=== PATIENT | male | born 2000 | race Caucasian/White ===

== ENCOUNTER 2025-04-28 12:47 | Emergency (ER) | payer OTHER, SELFPAY ==
--- NOTE | ~2025-04-28 | XR_ITS ---
EXAMINATION: XR foot RT min 3V, 04/28/2025 13:28 CDT HISTORY: toe injury COMPARISON: No comparisons available. Findings: No acute fracture or malalignment. No significant degenerative changes. Soft tissues unremarkable. Impression: No acute fracture or malalignment. Reviewed, dictated and finalized at location P. Impression: No acute fracture or malalignment.
[2025-04-28 13:07] VITALS: BP 126/76; PULSE 115; RESP 18; TEMP 36.4; O2SAT 100
--- NOTE | 2025-04-28 14:57 | ED.LOWEXIN ---
HPI - Extremity Injury (Lower) General Chief Complaint: Extremity Injury, Lower Stated Complaint: rt great toe injury /work-related Time Seen by Provider: 04/28/25 13:45 Source: patient and RN notes reviewed Mode of arrival: ambulatory Limitations: no limitations History of Present Illness HPI Narrative: 25-year-old male presents to the [facility] complaining of right great toe injury. Patient reports about 3 hours ago and large palate batteries fell off a palate lift and fell and landed on his right great toe. Patient denies any other injuries. Patient denies draining to help with pain. Patient denies any significant past medical history. Related Data Home Medications ?Medication ?Instructions ?Recorded ?Confirmed ?Last Taken ?Type atomoxetine 25 mg capsule mg PO 04/28/25 Unknown History bupropion HCl 150 mg 24 hr tablet, mg PO 04/28/25 Unknown History extended release cariprazine 3 mg capsule (Vraylar) mg 04/28/25 Unknown History esketamine 56 mg (28 mg x 2) nasal mg intranasal 04/28/25 Unknown History spray (Spravato) estradiol valerate 20 mg/mL mg IM 04/28/25 Unknown History intramuscular oil finasteride 1 mg tablet mg 04/28/25 Unknown History propranolol 20 mg tablet mg 04/28/25 Unknown History Allergies Allergy/AdvReac Type Severity Reaction Status Date / Time No Known Drug Allergies Allergy none Verified 04/28/25 13:20 Review of Systems Review of Systems: CONSTITUTIONAL: Denies fever, chills, or sweats. EYES: Denies visual changes, redness, or discharge. ENT: Denies rhinorrhea, congestion, sore throat, or otalgia. CARDIOVASCULAR: Denies chest pain, palpitations, or edema. RESPIRATORY: Denies cough or dyspnea. GASTROINTESTINAL: Denies abdominal pain, nausea, vomiting, or diarrhea. GENITOURINARY: Denies dysuria or hematuria. SKIN: Denies rash, wound, or itching. MUSCULOSKELETAL: Denies back pain, joint pain, or myalgia. Positive for injury and swelling NEUROLOGIC: Denies headache, numbness, or weakness. PSYCHIATRIC: Denies anxiety or depression. All other systems reviewed are negative, except as documented in HPI. PMFSH Comments At the time of my signature, I reviewed and agree with the nursing past medical, surgical, social, and family history. There is no relevant family history pertinent to the patient complaint. Exam Narrative: GENERAL: This is a well-nourished, well-developed adult, in no apparent distress. They are non ill-appearing, nontoxic appearing. HEAD: normocephalic, atraumatic. EYES: Sclera clear/white. Vision is grossly intact. Conjunctiva normal. Extraocular movement intact. EARS: External ears normal Hearing grossly intact. NOSE: External nose normal THROAT: Mucous membranes moist NECK: Neck supple CARDIOVASCULAR: Regular rate and rhythm RESPIRATORY: Respiratory rate normal, respiratory effort nonlabored, no respiratory distress NEURO: awake, alert, and oriented to person, place and time. There were no obvious focal neurologic abnormalities. EXTREMITIES: Right foot: No obvious deformity, injury,, bruising. Mild erythema and swelling to dorsal surface of right great toe near the MCP joint. Normal range of motion. Capillary refill less than 3 seconds. Right pedal Pulse 2 +palpable. Normal sensation. Neurovascular status intact distal injury. Negative Canut's test. Patient is able to wiggle his toes. BACK: Nontender without deformity. Course Course Emergency Course: Portions of this record may have been created with voice recognition software Level of Care: Express Care Visit Vital Signs Vital signs: Vital Signs Temperature 97.6 F 04/28/25 13:07 Pulse Rate 115 H 04/28/25 13:07 Respiratory Rate 18 04/28/25 13:07 Blood Pressure 126/76 04/28/25 13:07 Pulse Oximetry 100 04/28/25 13:07 Oxygen Delivery Room Air 04/28/25 13:07 Temperature 97.6 F 04/28/25 13:07 Pulse Rate 115 H 04/28/25 13:07 Respiratory Rate 18 04/28/25 13:07 Blood Pressure 126/76 04/28/25 13:07 Pulse Oximetry 100 04/28/25 13:07 Oxygen Delivery Room Air 04/28/25 13:07 Reviewed MDM - Extremity Injury (Lower) MDM Narrative Medical decision making narrative: X-ray right great toe negative for any fractures or acute findings. Likely toe contusion. Discussed physical exam findings. Advised supportive measures and signs/symptoms to go to the ER. Pt is appropriate for outpt treatment and f/u. Differential Diagnosis Differential diagnosis: Likely other (Toe fracture, toe sprain, foot fracture, foot sprain, crush injury) Imaging Data Radiologist's impression: ITS Impressions Foot X-Ray 04/28/25 13:46 Impression: No acute fracture or malalignment. Critical Care Time Critical Care Time Critical Care Time: No Discharge Plan Discharge Clinical Impression: Crush injury Contusion of toe of left foot Qualifiers: Encounter type: initial encounter Toe: great toe Damage to nail status: without damage Qualified Code(s): S90.112A - Contusion of left great toe without damage to nail, initial encounter Patient Disposition: Home Condition: Stable Instructions: Antibiotic Form, Foot Contusion (ED) Additional Instructions: X-ray of your left great toe negative for any fracture or acute findings Rest and elevate the leg; bear weight as tolerated Apply ice 15-20 minute intervals several times a day You may take ibuprofen 600 mg to 800 mg every 6-8 hours. Do not exceed more than 800 mg of ibuprofen per dose. Do not exceed more than 3200 mg ibuprofen in a day. You may take up to 1000 mg Tylenol every 6-8 hours. Do not exceed 1000 mg per dose, do exceed more than 4000 mg of Tylenol in a day. Follow up with your primary care provider as needed in 1-2 weeks especially if pain persist after week. Patient Language: [place] Prescriptions: No Action estradiol valerate 20 mg/mL oil IM propranolol 20 mg tablet finasteride 1 mg tablet atomoxetine 25 mg capsule PO bupropion HCl 150 mg tablet extended release 24 hr PO Vraylar 3 mg capsule Spravato 56 mg (28 mg x 2) spray,non-aerosol INTRANASAL Follow-up/Referrals: Anibal,Ciaran Guerin MD [Primary Care Provider, Unknown] Stand Alone Forms: Work/School Release IP Time of Disposition: 14:06
== END 2025-04-28 14:13 | disposition home or self-care (01) ==
PROVIDERS: PCP Family Medicine
DX: S97.112A Crushing injury of left great toe, initial encounter (principal); S90.112A Contusion of left great toe without damage to nail, initial encounter; W20.8XXA Other cause of strike by thrown, projected or falling object, initial encounter; Y99.0 Civilian activity done for income or pay; F41.9 Anxiety disorder, unspecified; F32.A Depression, unspecified; Z98.52 Vasectomy status
CPT/HCPCS: 73630; 99203; G0463